=== PATIENT | male | born 1945 | race Caucasian/White ===

== ENCOUNTER → 2017-05-17 | Outpatient (CLI) | payer MEDICARE, OTHER ==
[2016-05-13 14:04] VITALS: BMI 33.9
[~2017-05-17] MED LIST: ACET-1966 PO; ASPI-715 PO; ASPI-757 PO; ASPI-816 PO; ATOR20TA65 PO; AZI250 PO; AZIT500T47 PO; BACDS PO; BLOO-1318 MC; CALC-515 PO; CEP500 PO; CLI150 PO; CLO75 PO; CLON-298 PO; CLOP75TA43 PO; DIPH0.5D12 IM; DONE5TAB74 PO; FESO8PT GT; FLU20 PO; FLU45SYR17 IM; FLUO-177 PO; FOLI-68 PO; GLIM4TAB50 PO; GLY25 PO; GLYB1.2524 PO; INSU100I36 SQ; INSU100I5 SQ; LAMO25TA60 PO; LAMOT150PT PO; LEVI SUBQ; LIT300CAP PO; LITHOBID PO; LOR5 PO; MELA10TA3 PO; METF-410 PO; METF-420 PO; METF500T4 PO; METXL50 PO; MULT-820 PO; OMEG-96 PO; OSE75 FT; PIOG15TA14 PO; PIOG30TA3 PO; PNEU0.5D3 IM; PROL120 PO; SIMV-42 PO; SITA100T PO; SITA1TAB13 PO; SITA50TA6 PO; SULF-198 PO; THIA100T62 PO; TRIH2TAB17 PO; Trimethoprim/Sulfamethoxazole PO; VITA-200 PO
[2017-05-17 09:51] LABS: PLATELET COUNT, AUTOMATED 172 K/uL (150-450)
== END ==
LOC: LAB 09:22
PROVIDERS: ATTEND Internal Medicine
DX: I12.9 Hypertensive chronic kidney disease with stage 1 through stage 4 chronic kidney disease, or unspecified chronic kidney disease (principal); N18.3 Chronic kidney disease, stage 3 (moderate); F03.90 Unspecified dementia, unspecified severity, without behavioral disturbance, psychotic disturbance, mood disturbance, and anxiety; G47.33 Obstructive sleep apnea (adult) (pediatric); E11.22 Type 2 diabetes mellitus with diabetic chronic kidney disease; F31.9 Bipolar disorder, unspecified; E78.00 Pure hypercholesterolemia, unspecified
CPT/HCPCS: 36415; 81001; 82040; 82043; 82247; 82310; 82374; 82435; 82465; 82565; 82947; 83036; 83718; 84075; 84132; 84155; 84295; 84443; 84450; 84460; 84478; 84520; 85025

== ENCOUNTER → 2017-08-23 | Outpatient (CLI) | payer MEDICARE, OTHER ==
[2016-05-13 14:04] VITALS: BMI 33.9
[~2017-08-23] MED LIST changes: -ASPI-816 PO; +ASPI-870 PO; +MEMA10TA18 PO
[2017-08-23 09:37] LABS: PLATELET COUNT, AUTOMATED 171 K/uL (150-450)
== END ==
LOC: LAB 09:06
PROVIDERS: ATTEND Internal Medicine
DX: I12.9 Hypertensive chronic kidney disease with stage 1 through stage 4 chronic kidney disease, or unspecified chronic kidney disease (principal); N18.3 Chronic kidney disease, stage 3 (moderate); E78.00 Pure hypercholesterolemia, unspecified; E11.42 Type 2 diabetes mellitus with diabetic polyneuropathy
CPT/HCPCS: 36415; 81001; 82040; 82247; 82310; 82374; 82435; 82465; 82565; 82947; 83036; 83718; 84075; 84132; 84155; 84295; 84443; 84450; 84460; 84478; 84520; 85025

== ENCOUNTER → 2017-12-02 | Outpatient (CLI) | payer MEDICARE, OTHER ==
[2016-05-13 14:04] VITALS: BMI 33.9
[~2017-12-02] MED LIST changes: -CLON-298 PO; +CLON-331 PO; -METF-410 PO; +METF-411 PO; -METF-420 PO; +METF-421 PO; -PIOG30TA3 PO; +PIOG30TA71 PO
[2017-12-02 14:05] LABS: PLATELET COUNT, AUTOMATED 173 K/uL (150-450)
== END ==
LOC: LAB 13:29
PROVIDERS: ATTEND Internal Medicine
DX: I12.9 Hypertensive chronic kidney disease with stage 1 through stage 4 chronic kidney disease, or unspecified chronic kidney disease (principal); N18.3 Chronic kidney disease, stage 3 (moderate); E11.9 Type 2 diabetes mellitus without complications; F03.90 Unspecified dementia, unspecified severity, without behavioral disturbance, psychotic disturbance, mood disturbance, and anxiety
CPT/HCPCS: 36415; 81001; 82043; 83036; 84443; 85025; G0103; 82040; 82247; 82310; 82374; 82435; 82465; 82565; 82947; 83718; 84075; 84132; 84153; 84155; 84295; 84450; 84460; 84478; 84520

== ENCOUNTER → 2018-01-24 | Outpatient (CLI) | payer MEDICARE, OTHER ==
[2016-05-13 14:04] VITALS: BMI 33.9
[~2018-01-24] MED LIST changes: +ASPI-870; +DIPH-740 PO; +MELA3TAB14 PO; -METF-411 PO; -METF-421 PO; +METF-450 PO; +METF-452 PO
== END ==
LOC: LAB 08:45
PROVIDERS: ATTEND Internal Medicine
DX: Z02.9 Encounter for administrative examinations, unspecified (principal)

== ENCOUNTER → 2018-01-27 | Outpatient (CLI) | payer MEDICARE, OTHER ==
[2016-05-13 14:04] VITALS: BMI 33.9
== END ==
LOC: LAB 12:38
PROVIDERS: ATTEND Internal Medicine
DX: E78.00 Pure hypercholesterolemia, unspecified (principal)
CPT/HCPCS: 36415; 82040; 82247; 82310; 82374; 82435; 82465; 82565; 82947; 83718; 84075; 84132; 84155; 84295; 84450; 84460; 84478; 84520

== ENCOUNTER → 2018-03-24 | Outpatient (CLI) | payer MEDICARE, OTHER ==
[2016-05-13 14:04] VITALS: BMI 33.9
[2018-03-24 09:12] LABS: PLATELET COUNT, AUTOMATED 164 K/uL (150-450)
== END ==
LOC: LAB 08:48
PROVIDERS: ATTEND Internal Medicine
DX: F31.9 Bipolar disorder, unspecified (principal); N18.3 Chronic kidney disease, stage 3 (moderate); E11.9 Type 2 diabetes mellitus without complications; F03.90 Unspecified dementia, unspecified severity, without behavioral disturbance, psychotic disturbance, mood disturbance, and anxiety; E78.00 Pure hypercholesterolemia, unspecified; I10 Essential (primary) hypertension
CPT/HCPCS: 36415; 81001; 82040; 82043; 82247; 82310; 82374; 82435; 82465; 82565; 82947; 83036; 83718; 84075; 84132; 84155; 84295; 84443; 84450; 84460; 84478; 84520; 85025

== ENCOUNTER → 2018-09-03 | Outpatient (CLI) | payer MEDICARE, OTHER ==
[2016-05-13 14:04] VITALS: BMI 33.9
[~2018-09-03] MED LIST changes: -DIPH0.5D12 IM; +DIPH0.5S2 IM; -LAMO25TA60 PO; +LAMO25TA68 PO
[2018-09-03 09:17] LABS: PLATELET COUNT, AUTOMATED 160 K/uL (150-450)
== END ==
LOC: LAB 08:51
PROVIDERS: ATTEND Internal Medicine
DX: Z12.5 Encounter for screening for malignant neoplasm of prostate (principal); E78.00 Pure hypercholesterolemia, unspecified; E11.9 Type 2 diabetes mellitus without complications; N18.3 Chronic kidney disease, stage 3 (moderate); R35.0 Frequency of micturition
CPT/HCPCS: 36415; 81001; 83036; 84443; 85025; G0103; 82040; 82247; 82310; 82374; 82435; 82465; 82565; 82947; 83718; 84075; 84132; 84153; 84155; 84295; 84450; 84460; 84478; 84520

== ENCOUNTER → 2018-10-22 | Outpatient (CLI) | payer MEDICARE, OTHER ==
[2016-05-13 14:04] VITALS: BMI 33.9
[~2018-10-22] MED LIST changes: +DONE10TA38 PO; +EMPA10TA PO
[2018-10-22 11:19] LABS: PLATELET COUNT, AUTOMATED 149 K/uL (150-450)
== END ==
LOC: LAB 10:53
PROVIDERS: ATTEND Internal Medicine
DX: F03.90 Unspecified dementia, unspecified severity, without behavioral disturbance, psychotic disturbance, mood disturbance, and anxiety (principal); E11.9 Type 2 diabetes mellitus without complications; N18.3 Chronic kidney disease, stage 3 (moderate)
CPT/HCPCS: 36415; 81001; 82040; 82247; 82310; 82374; 82435; 82565; 82947; 83036; 84075; 84132; 84155; 84295; 84450; 84460; 84520; 85025

== ENCOUNTER → 2018-11-14 | Outpatient (CLI) | payer MEDICARE, OTHER ==
[2016-05-13 14:04] VITALS: BMI 33.9
== END ==
LOC: LAB 08:45
PROVIDERS: ATTEND Internal Medicine
DX: I25.10 Atherosclerotic heart disease of native coronary artery without angina pectoris (principal); E78.00 Pure hypercholesterolemia, unspecified
CPT/HCPCS: 36415; 82040; 82247; 82310; 82374; 82435; 82465; 82565; 82947; 83718; 84075; 84132; 84155; 84295; 84450; 84460; 84478; 84520

== ENCOUNTER 2018-11-19 09:00 | Outpatient (RCR) | payer MEDICARE, OTHER ==
[2016-05-13 14:04] VITALS: BMI 33.9
--- NOTE | 2018-09-29 15:06 | PT INITIAL EVALUATION ---
MEDICAL DIAGNOSIS: dementia, DM type 2, impaired functional mobility, balance, gait, and endurance TREATMENT DIAGNOSIS: same DATE OF ONSET: 04/22/18 SUBJECTIVE: Aaron Wray presents to physical therapy with complaints of decreased balance and gait mechanics that started a while ago. He reports that he uses the counter and everything else around his house in order to prevent falls. He reports that he had a fall about one month ago without any injuries. He also reports that he has some dizziness when he is leaning back. He reports that he has arthritis in his neck, hands, ankles, and knees. He reports that he comes to cardiac rehab and states that he works out for 5 minutes and then utilizes it more of a social hour rather than a place to workout. REHAB PROBLEM LIST: Decreased ROM Decreased Strength Decreased Endurance Decreased Balance Decreased Function Decreased Mobility Decreased Gait PREVIOUS MEDICAL HISTORY: See EMR OCCUPATION: Retired OBJECTIVE: Posture: She demonstrates B rounded shoulders, increased thoracic kyphosis, and decreased lumbar lordosis ROM: B LE's: WFL's. Strength: L hip flexion, extension, abduction, adduction, L knee flexion and extension, L ankle DF and PF: 4-/5. R hip flexion, extension, abduction, adduction, R knee flexion and extension, and R ankle DF and PF. 4+/5. Special Tests: 6 minute walk test: 1026 feet. Mobility: Independent Gait: He demonstrated the following gait mechanics without an AD: decreased R step length, decreased R step height, decreased velocity, increased lateral trunk movement, and decreased pelvic mobility. Balance: Normal base of support, eyes opened, firm surface: 60 seconds. Normal base of support, eyes closed, firm surface: 60 seconds. Normal base of support, eyes closed, firm surface: 60 seconds. Decreased base of support, eyes opened, firm surface: 60 seconds. Decreased base of support, eyes closed, firm surface: 60 seconds. Normal base of support, eyes opened, compliant surface: 60 seconds. Normal base of support, eyes closed, compliant surface: 60 seconds. Tandem R stance, eyes opened, firm surface: 36 seconds. Tandem L stance, eyes opened, firm surface: 55 seconds. Unable to do tandem with eyes closed for any length of time. Tandem R stance, eyes opened, compliant surface: 20 seconds. Tandem L stance, eyes opened, firm surface: 40 seconds. SLS: R: 3 seconds. SLS: L: 2 seconds Other Objective Findings: BP: 114/70, HR: 69 bpm, SPO2%: 95% without O2 ASSESSMENT: Aaron will benefit from skilled physical therapy addressing the listed impairments to improve function and QOL. Short Term Goals 6 weeks: Pt will demonstrate increased L LE strength from baseline to 4+/5 or greater to improve function and QOL. 8 weeks: Pt will demonstrate increased balance strategies in all conditions and be able to hold 60 seconds or greater to improve function and QOL. 8 weeks: Pt will demonstrate increased R step length to improve gait mechanics to improve function and QOL. Patient's Goals improve balance and gait PLAN: Patient to be seen for Manual Therapy/STM/MET Strengthening/condition Range of Motion Work Hardening/Cond Stretching Neuromuscular Re-ed Closed Chain Program Posture/Body mechanics Gait Trg/Balance Trg Home Exercise Program Therapeutic Activities 2x/Week for 2 Months If you have any questions, comments, or concerns about this report or plan, please contact me at . Thank you, Frandy Langley, PT, DPT MTDD
--- NOTE | 2018-10-30 08:41 | PT PLAN OF CARE ---
Physician: Clay Perez MD Patient is being seen: 2x/week Therapist: Frandy Langley, PT, DPT Medical Diagnosis: dementia, DM type 2, impaired functional mobility, balance, gait, and endurance Treatment Diagnosis: same Date of Onset: 04/22/18 Date of Initial Evaluation: 09/29/18 Date patient was last seen: 10/29/18 Number of treatments: 10 Number of cancellations/No shows: 0 INTERVENTIONS: Manual Therapy/STM/MET Strengthening/condition Range of Motion Work Hardening/Cond Stretching Neuromuscular Re-ed Closed Chain Program Posture/Body mechanics Gait Trg/Balance Trg Home Exercise Program Therapeutic Activities GOALS: 6 weeks: Pt will demonstrate increased L LE strength from baseline to 4+/5 or greater to improve function and QOL. 8 weeks: Pt will demonstrate increased balance strategies in all conditions and be able to hold 60 seconds or greater to improve function and QOL. 8 weeks: Pt will demonstrate increased R step length to improve gait mechanics to improve function and QOL. PATIENT'S GOAL: improve balance and gait Status of Patient's Goals: Progressing well Patient Compliance: Good Prognosis: Good Reasons for continuing therapy: This is a progress note for Aaron Wray. He reports that he feels a lot better since he is drinking more and is more hydrated. He reports that he has not felt the dizziness or lightheadedness since he has started drinking more water. He also reports that he has more energy as a result. He demonstrated significant improvements in his endurance from 1000 feet to 1325 feet in a 6 minute walk test, increased balance strategies in all conditions; however, he continues to struggle with single leg stance and tandem stance with his eyes closed. Furthermore, he has demonstrated improvements with B LE strength that has improved his ability to get up and down from low surfaces, which was a struggle prior to PT. Furthermore, he continues to struggle with decreased L foot clearance, decreased L heel strike, and increased lateral trunk movements, which we will address and see if we can overcome in the next 8-10 sessions. Posture: She demonstrates B rounded shoulders, increased thoracic kyphosis, and decreased lumbar lordosis ROM: B LE's: WFL's. Strength: L hip flexion, extension, abduction, adduction, L knee flexion and extension, L ankle DF and PF: 4/5. R hip flexion, extension, abduction, adduction, R knee flexion and extension, and R ankle DF and PF. 4+/5. Special Tests: 6 minute walk test: 1325.25 feet. Balance: able to do all conditions for 60 seconds with the exception of R/L tandem with eyes closed: 20 seconds, R and L single leg stance: 5-7 seconds. Mobility: Independent If you have any questions, please contact me at [phone]. Thank you, Frandy Langley, PT, DPT TINOD
--- NOTE | 2018-11-19 14:05 | PT PLAN OF CARE ---
Physician: Clay Perez MD Patient is being seen: 2x/week Therapist: Frandy Langley, PT, DPT Medical Diagnosis: dementia, DM type 2, impaired functional mobility, balance, gait, and endurance Treatment Diagnosis: same Date of Onset: 04/22/18 Date of Initial Evaluation: 09/29/18 Date patient was last seen: 11/19/18 Number of treatments: 15 Number of cancellations/No shows: 0 INTERVENTIONS: Manual Therapy/STM/MET Strengthening/condition Range of Motion Work Hardening/Cond Stretching Neuromuscular Re-ed Closed Chain Program Posture/Body mechanics Gait Trg/Balance Trg Home Exercise Program Therapeutic Activities GOALS: 6 weeks: Pt will demonstrate increased L LE strength from baseline to 4+/5 or greater to improve function and QOL. MET 8 weeks: Pt will demonstrate increased balance strategies in all conditions and be able to hold 60 seconds or greater to improve function and QOL. MET 8 weeks: Pt will demonstrate increased R step length to improve gait mechanics to improve function and QOL.Progressed well PATIENT'S GOAL: improve balance and gait Status of Patient's Goals: MET Patient Compliance: Good Prognosis: Good Reasons for continuing therapy: This is a discharge note for Aaron Wray. He reports that he is doing well. He reports that he feels like he is walking with more vigor. He reports that he does not use his furniture as much as prior to PT. He reports that he also feels like overall he is doing much better. . He also reports that he has more energy as a result. He demonstrated significant improvements in his endurance from 1000 feet to 1325 feet to 1350 feet in a 6 minute walk test.He has progressed well within PT demonstrating the following improvements: improvements in balance strategies in all conditions, increased B LE strength and functional strength, increased gait mechanics (equal step lengths, increased B foot clearance, and increased velocity). He reports that he is very unlikely to perform anything at home even though he was given a brief home exercise program to maintain his functional gains that we have made over the last 6 weeks. He has met his goals. As a result, he will be discharged from PT to [facility]. ROM: B LE's: WFL's. Strength: L hip flexion, extension, abduction, adduction, L knee flexion and extension, L ankle DF and PF: 4/5. R hip flexion, extension, abduction, adduction, R knee flexion and extension, and R ankle DF and PF. 4+/5. Special Tests: 6 minute walk test: 1350 feet. Balance: able to do all conditions for 60 seconds with the exception of R/L tandem with eyes closed: 45 seconds, R and L single leg stance: 10 seconds. Mobility: Independent If you have any questions, please contact me at [phone]. Thank you, Frandy Langley, PT, DPT MTDD
== END 2018-11-19 18:00 | disposition home or self-care (01) ==
LOC: PT 09:00
PROVIDERS: ATTEND Internal Medicine
DX: F03.90 Unspecified dementia, unspecified severity, without behavioral disturbance, psychotic disturbance, mood disturbance, and anxiety (principal); E11.9 Type 2 diabetes mellitus without complications; Z74.09 Other reduced mobility
CPT/HCPCS: 97161

== ENCOUNTER → 2018-12-04 | Outpatient (CLI) | payer MEDICARE, OTHER ==
[2016-05-13 14:04] VITALS: BMI 33.9
== END ==
LOC: LAB 10:06
PROVIDERS: ATTEND Urology
DX: Z12.5 Encounter for screening for malignant neoplasm of prostate (principal); N40.1 Benign prostatic hyperplasia with lower urinary tract symptoms
CPT/HCPCS: 36415; G0103; 84153